=== PATIENT | male | born 1935 | race African-American/Black ===

== ENCOUNTER 2016-11-17 13:37 | Emergency (ER) | payer MEDICARE, OTHER, MEDICAID ==
[~2016-11-17] VITALS: Ht 185.4 cm; Wt 80.0 kg
[~2016-11-17 13:37] MED LIST: ACIDOPHILUS PO; AMIODARONE200 MG PO; AMOXICILLIN500 MG PO; ANTIVERT12.5 MG PO; ASPIRIN325 MG PO; BACTRIM DS1 TAB PO; CHILD'S ASA81 MG PO; CIPRO750 MG PO; CIPROFLOXACIN250 MG PO; CIPROFLOXACN500 MG PO; COZAAR50 MG PO; DICLOFENAC SODI75 MG PO; DILAUDID2 MG PO; DIOVAN160 MG PO; FLOMAX0.4 M1 PO; GLIPIZIDE ER5 M1 PO; GLIPIZIDE ER5 MG PO; GLIPIZIDE5 MG PO; HYDRALAZINE HCL50 MG PO; KEFLEX250 MG PO; LEVAQUIN750 MG PO; LOSARTAN POT50 MG PO; MAG CITRATE PO; MEDDOSEPAK PO; MELOXICAM7.5 MG PO; METOPROL TAR50 MG PO; METOPROLOL SUCC50 MG PO; SIMVASTATIN10 MG PO; SIMVASTATIN20 MG PO; TOPROL XL50 MG PO; XARELTO10 MG PO
[2016-11-17] MEDS ORDERED: AMOXICILLIN500 MG PO (14:22)
[2016-11-17 14:46] VITALS: BP 155/87
== END 2016-11-17 14:40 | disposition home or self-care (01) ==
LOC: ED 13:37
DX: S61.442A Puncture wound with foreign body of left hand, initial encounter (principal); W26.8XXA Contact with other sharp object(s), not elsewhere classified, initial encounter; Y93.19 Activity, other involving water and watercraft; Y92.828 Other wilderness area as the place of occurrence of the external cause

== ENCOUNTER 2017-05-23 07:32 | Day surgery (SDC) | payer MEDICARE, OTHER, MEDICAID ==
[~2017-05-23] VITALS: Ht 185.4 cm; Wt 78.9 kg
[~2017-05-23 07:32] MED LIST changes: +BRIMONIDINE TAR0.2 %; +DICYCLOMINE HCL10 MG PO; +DIFLUCAN100 M1; +LORTAB 1010 MG PO
[2017-05-23 10:50] VITALS: BP 150/85
== END 2017-05-23 11:03 | disposition home or self-care (01) ==
LOC: ENDO 07:32 → ORM 16:30 → ENDO 16:30
PROVIDERS: ATTEND Internal Medicine Gastroenterology
PROC: 0DBK8ZX Excision of Ascending Colon, Via Natural or Artificial Opening Endoscopic, Diagnostic (ICD-10-PCS; principal; 2017-05-23)
PROC: 0DBL8ZX Excision of Transverse Colon, Via Natural or Artificial Opening Endoscopic, Diagnostic (ICD-10-PCS; 2017-05-23)
PROC: 0DBP8ZX Excision of Rectum, Via Natural or Artificial Opening Endoscopic, Diagnostic (ICD-10-PCS; 2017-05-23)
DX: Z12.11 Encounter for screening for malignant neoplasm of colon (principal); D12.3 Benign neoplasm of transverse colon; D12.2 Benign neoplasm of ascending colon; D12.8 Benign neoplasm of rectum; K64.4 Residual hemorrhoidal skin tags; K64.8 Other hemorrhoids; I10 Essential (primary) hypertension; E11.9 Type 2 diabetes mellitus without complications; I25.10 Atherosclerotic heart disease of native coronary artery without angina pectoris; E78.00 Pure hypercholesterolemia, unspecified; I25.2 Old myocardial infarction; Z86.010 Personal history of colon polyps; Z95.1 Presence of aortocoronary bypass graft; Z95.5 Presence of coronary angioplasty implant and graft